=== PATIENT | female | born 1980 | race Caucasian/White ===

== ENCOUNTER 2023-11-07 09:02 | Day surgery (SDC) | payer OTHER, MEDICAID | END 2023-11-07 14:20 | disposition home or self-care (01) | LOC: CSHSDC 09:02 | PROVIDERS: ATTEND Family Medicine | DX: K90.9 Intestinal malabsorption, unspecified (principal); J30.2 Other seasonal allergic rhinitis; Z88.0 Allergy status to penicillin; Z88.5 Allergy status to narcotic agent; Z91.018 Allergy to other foods | CPT/HCPCS: 96365; 96366; J1756; J7050 ==